=== PATIENT | male | born 1945 | race Caucasian/White ===

== ENCOUNTER 2023-04-26 12:04 | Emergency (ER) | payer OTHER ==
[~2023-04-26] VITALS: Ht 165.1 cm; Wt 81.6 kg
[2023-04-26 13:00] VITALS: BP 117/66; PULSE 70; RESP 18; TEMP 97; O2SAT 98
[2023-04-26] MEDS ORDERED: ONDANSETRON 4 MG ODT PO ONE (13:45)
[2023-04-26] MEDS ORDERED: MORPHINE SULFATE 4 MG/ML SYR IM ONE (13:45)
[2023-04-26] MEDS ORDERED: NAPR-1704 PO (13:45)
[2023-04-26] MEDS ORDERED: HYDROcodone/APAP 5/325 MG 1 TAB TAB PO ONE (15:30)
[2023-04-26 15:44] VITALS: O2SAT 98
== END 2023-04-26 15:45 | disposition home or self-care (01) ==
LOC: MED 12:04
DX: G89.29 Other chronic pain (principal); M54.50 Low back pain, unspecified; Z98.890 Other specified postprocedural states; Z79.1 Long term (current) use of non-steroidal anti-inflammatories (NSAID); Z88.2 Allergy status to sulfonamides
CPT/HCPCS: 96372; 99283; J2270; Q0162